=== PATIENT | male | born 1960 ===

== ENCOUNTER 2018-06-14 09:36 | Day surgery (SDC) | payer OTHER ==
[~2018-06-14] VITALS: Ht 172.7 cm; Wt 88.9 kg
[2018-06-14] VITALS (7 sets, daily range): BP systolic 101–126; BP diastolic 72–86
[2018-06-14] MEDS ORDERED: normal saline 1000ml 1,000 ML IV PRN (10:15)
[2018-06-14] MEDS ORDERED: INSU100I8 SQ (10:40)
[2018-06-14] MEDS ORDERED: OXYC-658 PO (10:40)
[2018-06-14] MEDS ORDERED: ONDA4TAB6 PO (10:40)
[2018-06-14] MEDS ORDERED: ATOR80TA PO (10:40)
[2018-06-14] MEDS ORDERED: FAMO-128 PO (10:40)
[2018-06-14] MEDS ORDERED: CLOP75TA15 PO (10:40)
[2018-06-14] MEDS ORDERED: ASPI-12 PO (10:40)
[2018-06-14] MEDS ORDERED: SERT25TA PO (10:40)
[2018-06-14] MEDS ORDERED: LEVO100T9 PO (10:40)
[2018-06-14] MEDS ORDERED: iohexol 300 MG/1 ML 50ml polymer ONE (10:42)
[2018-06-14] MEDS ORDERED: LIDOcaine 1%/PF 5ML 10 MG/ML VIAL ONE (10:42)
[2018-06-14] MEDS ORDERED: LIDOcaine 1%/PF 5ML 10 MG/ML VIAL SQ ONE (10:45)
[2018-06-14] MEDS ORDERED: midazolam 2 mg/2 ml injection IV PRN (10:45)
[2018-06-14] MEDS ORDERED: glucagon, human recombinant 1mg kit IM ONE (10:45)
[2018-06-14] MEDS ORDERED: fentaNYL/PF 50MCG/1 ML 2ML syringe IV PRN (10:45)
[2018-06-14] MEDS ORDERED: glucagon, human recombinant 1mg kit ONE (11:05)
[2018-06-14] MEDS ORDERED: fentaNYL/PF 50MCG/1 ML 2ML syringe ONE (11:06)
[2018-06-14] MEDS ORDERED: midazolam 2 mg/2 ml injection ONE (11:06)
[2018-06-14 11:09] LABS: BASOPHILS % (AUTO) 0.4 % (0-1); EOSINOPHILS # (AUTO) 0.7 X10'3 (0-0.9); EOSINOPHILS % (AUTO) 6.8 % (0-6); LYMPHOCYTES # (AUTO) 1.4 X10'3 (1.1-4.8); LYMPHOCYTES % (AUTO) 14.1 % (21-51); MEAN CORPUSCULAR HEMOGLOBIN 31.1 PG (27.0-31.0); MEAN CORPUSCULAR HGB CONC 33.8 % (33.0-36.5); MEAN PLATELET VOLUME 6.6 FL (7.4-10.4); MONOCYTES # (AUTO) 1.2 X10'3 (0-0.9); MONOCYTES % (AUTO) 11.9 % (2-12); NEUTROPHILS # (AUTO) 6.5 X10'3 (1.8-7.7); NEUTROPHILS % (AUTO) 66.8 % (42-75); PRE OP PLATELET COUNT 188 X10'3 (140-440); RED BLOOD COUNT 3.37 X10'6 (4.70-6.10); RED CELL DISTRIBUTION WIDTH 15.1 % (11.5-14.5)
[2018-06-14 11:14] LABS: PRE OP HEMOGLOBIN 10.5 g/dL (14.0-17.9)
[2018-06-14 11:19] LABS: ALBUMIN 3.2 G/DL (3.4-5.0); ANION GAP 9 (8-16); BLOOD UREA NITROGEN 14 MG/DL (7-18); CHLORIDE 96 MMOL/L (99-107); GLUCOSE 106 MG/DL (70-104); POTASSIUM 4.3 MMOL/L (3.5-5.1); SODIUM 132 MMOL/L (135-145); TOTAL CARBON DIOXIDE 27.2 MMOL/L (24-32); eGFR > 90 ML/MIN
[2018-06-14 11:21] LABS: INR 1.2 INR; PROTHROMBIN TIME 12.5 SECONDS (9.0-12.0)
== END 2018-06-14 13:20 ==
LOC: SSTAY O 09:36
PROVIDERS: ATTEND Radiology Diagnostic Radiology
DX: I69.391 Dysphagia following cerebral infarction (principal); R13.10 Dysphagia, unspecified; E78.5 Hyperlipidemia, unspecified; E03.9 Hypothyroidism, unspecified; E11.9 Type 2 diabetes mellitus without complications; F10.10 Alcohol abuse, uncomplicated; F32.9 Major depressive disorder, single episode, unspecified; Z93.0 Tracheostomy status; Z79.82 Long term (current) use of aspirin; Z79.01 Long term (current) use of anticoagulants; Z79.4 Long term (current) use of insulin; Z79.891 Long term (current) use of opiate analgesic; Z86.69 Personal history of other diseases of the nervous system and sense organs; Z86.19 Personal history of other infectious and parasitic diseases; Z79.899 Other long term (current) drug therapy; Z98.890 Other specified postprocedural states
CPT/HCPCS: 36415; 49440; 80048; 82948; 85025; 85610; 99152; J1610; J2001; J2250; J3010; J7030; Q9967